=== PATIENT | female | born 1985 | race Caucasian/White ===

== ENCOUNTER 2018-09-17 11:13 | Emergency (ER) | payer OTHER ==
[~2018-09-17] VITALS: Ht 160 cm; Wt 73.8 kg
[~2018-09-17 11:13] MED LIST: AMIT100T PO; ESCI20TA PO; HYDR-3307 PO; MORP15TA PO; VALA1000 PO; ZONI25CA2 PO
[2018-09-17 12:24] LABS: MICROSCOPIC NOT IND
--- NOTE | 2018-09-17 12:29 | NUR ---
PT AMBULOTORY TO ROOM FROM LOBBY.
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
[2018-09-17 12:53] VITALS: BP 111/71
--- NOTE | 2018-09-17 12:59 | NUR ---
DR STOCKTON AT BEDSIDE TO AK[facility]IL PT
--- NOTE | 2018-09-17 13:19 | NUR ---
REPORT RECEIVED FROM TASK FRANK RIVERA, REPORT GIVEN TO FRANK PARRA AT BEDSIDE.
[2018-09-17 13:29] LABS: BASOPHILS # (AUTO) 0.15 x10^3/uL (0-0.1); BASOPHILS % (AUTO) 1 % (0-1); EOSINOPHILS # (AUTO) 0.11 x10^3/uL (0-0.4); EOSINOPHILS % (AUTO) 1 % (1-7); LYMPHOCYTES % (AUTO) 17 % (22-44); MD NO; MEAN CORPUSCULAR HEMOGLOBIN 30.8 pg (27.0-34.8); MEAN CORPUSCULAR HGB CONC 33.3 g/dL (32.4-35.8); MEAN CORPUSCULAR VOLUME 92.3 fL (80-100); MEAN PLATELET VOLUME 7.9 fL (7.4-10.4); MONOCYTES # (AUTO) 0.67 x10^3/uL (0.2-0.8); MONOCYTES % (AUTO) 5 % (2-9); NEUTROPHILS # (AUTO) 10.09 x10^3/uL (1.8-6.8); NEUTROPHILS % (AUTO) 76 % (42-75); PLATELET COUNT 319 x10^3/uL (130-400); RED BLOOD COUNT 3.78 x10^6/uL (3.82-5.3); RED CELL DISTRIBUTION WIDTH 14.9 % (9.6-15.2)
[2018-09-17 13:40] LABS: ALANINE AMINOTRANSFERASE 11 U/L (12-78); ALBUMIN 3.5 g/dL (3.4-5.0); ANION GAP 7 mmol/L (5-15); CALCIUM 8.4 mg/dL (8.5-10.1); CHLORIDE 110 mmol/L (98-107); CREATININE 0.46 mg/dL (0.55-1.02)
[2018-09-17 13:43] LABS: ALKALINE PHOSPHATASE 74 U/L (45-117); BILIRUBIN,TOTAL 0.2 mg/dL (0.2-1.0); TOTAL PROTEIN 6.7 g/dL (6.4-8.2)
== END 2018-09-17 15:08 | disposition home or self-care (01) ==
LOC: ED 13:46
DX: O26.891 Other specified pregnancy related conditions, first trimester (principal); Z3A.13 13 weeks gestation of pregnancy; R10.84 Generalized abdominal pain; O99.332 Smoking (tobacco) complicating pregnancy, second trimester; G44.211 Episodic tension-type headache, intractable; R00.2 Palpitations; Z90.49 Acquired absence of other specified parts of digestive tract
CPT/HCPCS: 36415; 71045; 76801; 80053; 81003; 85025; 93005; 99284

== ENCOUNTER 2019-11-29 04:53 | Emergency (ER) | payer SELFPAY ==
[~2019-11-29] VITALS: Ht 165.1 cm; Wt 75.0 kg
[~2019-11-29 04:53] MED LIST changes: +HYDR-3246 PO; -HYDR-3307 PO; +PRAZ1CAP2 PO; +SUMA100T4 PO; -VALA1000 PO; +VALA10007 PO; +ZONI25CA16 PO; -ZONI25CA2 PO
[2019-11-29 05:23] VITALS: BP 149/110
[2019-11-29 05:52] LABS: AMPHETAMINE SCREEN, URINE Negative (Negative); BARBITURATE SCREEN, URINE Negative (Negative); BENZODIAZEPINE SCREEN, URINE Negative (Negative); CANNABINOID SCREEN, URINE Negative (Negative); COCAINE SCREEN, URINE Negative (Negative); METHADONE SCREEN, URINE Negative (Negative); OPIATE SCREEN, URINE Negative (Negative)
--- NOTE | 2019-11-29 06:54 | NUR ---
REPORT GIVEN TO FRANK MARINELLI.
--- NOTE | 2019-11-29 07:02 | NUR ---
REPORT FROM KENDRA
--- NOTE | 2019-11-29 07:23 | NUR ---
GIVEN WARM BLANKETS, RESTING ON GURNEY. NO OTHER NEEDS AT THIS TIME, CHILD SLEEPING
--- NOTE | 2019-11-29 08:27 | NUR ---
ordered meal tray, gave baby formula. both resting.
--- NOTE | 2019-11-29 09:46 | NUR ---
CPS AT BEDSIDE
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
--- NOTE | 2019-11-29 10:29 | NUR ---
JAMEL TO ASSIST PT FOR DC. PT CRYING AND UPSET. PT REFUSED TO TAKE DC PAPERS
== END 2019-11-29 10:32 | disposition home or self-care (01) ==
LOC: ED 06:16
DX: F41.1 Generalized anxiety disorder (principal); R45.1 Restlessness and agitation; F15.10 Other stimulant abuse, uncomplicated
CPT/HCPCS: 80307; 99283

== ENCOUNTER 2020-11-01 02:45 | Inpatient (IN) | payer MEDICAID ==
[~2020-11-01] VITALS: Ht 162.6 cm; Wt 63.0 kg
[~2020-11-01 02:45] MED LIST changes: -ESCI20TA PO; +ESCI20TA8 PO; -HYDR-3246 PO; +HYDR-3248 PO
[2020-11-01 03:31] LABS: BASOPHILS % (AUTO) 1 % (0-1); EOSINOPHILS % (AUTO) 1 % (1-7); LYMPHOCYTES % (AUTO) 27 % (22-44); MEAN CORPUSCULAR HEMOGLOBIN 30.8 pg (27.0-34.8); MEAN CORPUSCULAR HGB CONC 34.3 g/dL (32.4-35.8); MEAN PLATELET VOLUME 8.7 fL (7.4-10.4); MONOCYTES % (AUTO) 8 % (2-9); NEUTROPHILS % (AUTO) 63 % (42-75); PLATELET COUNT 258 x10^3/uL (130-400); RED BLOOD COUNT 4.52 x10^6/uL (3.82-5.3); RED CELL DISTRIBUTION WIDTH 13.7 % (9.6-15.2)
[2020-11-01 03:32] LABS: ALBUMIN 4.1 g/dL (3.4-5.0); ANION GAP 7 mmol/L (5-15); CALCIUM 8.5 mg/dL (8.5-10.1); CHLORIDE 113 mmol/L (98-107); CREATININE 0.67 mg/dL (0.55-1.02); SALICYLATE LEVEL 2.3 mg/dL (2.8-20.0)
[2020-11-01 03:33] LABS: MD NO
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
--- NOTE | 2020-11-01 04:38 | NUR ---
PT SLEEPING, IN NO ACUTE DISTRESS, CALM.
--- NOTE | 2020-11-01 06:17 | NUR ---
PT REMAINS ASLEEP, REMAINS ON LEGAL HOLD FOR [employer]. NO DISTRESS, SKIN PINK WARM AND DRY, AIRWAY INTACT, GOOD AERATION AND OXYGENATION.
--- NOTE | 2020-11-01 06:47 | NUR ---
REPORT AND CARE TO HUANG MARIE.
--- NOTE | 2020-11-01 07:03 | NUR ---
Pt sleeping, connected to BP and O2 monitors and in view of sitter. Breakfast tray ordered.
--- NOTE | 2020-11-01 08:00 | NUR ---
Late entry: Pt changed to gown. All belongings in 3 labeled bags. Pt provided with breakfast. Pt sleeping in view of sitter now at 0943.
[2020-11-01 10:12] LABS: AMPHETAMINE SCREEN, URINE Positive (Negative); BARBITURATE SCREEN, URINE Negative (Negative); BENZODIAZEPINE SCREEN, URINE Negative (Negative); CANNABINOID SCREEN, URINE Negative (Negative); COCAINE SCREEN, URINE Negative (Negative); METHADONE SCREEN, URINE Negative (Negative); OPIATE SCREEN, URINE Negative (Negative)
[2020-11-01] MEDS ORDERED: IBUPROFEN 200 MG TABLET PO ONE (13:00)
[2020-11-01] MEDS ORDERED: ZIPRASIDONE 20 MG INJ IM ONE (13:30)
--- NOTE | 2020-11-01 13:31 | NUR ---
At 1215, ramon Cuadra F[employer]ER DESIGNER at bedside for eval.
[2020-11-01] MEDS ORDERED: ACETAMINOPHEN 325 MG TABLET PO PRN (16:30)
[2020-11-01] MEDS ORDERED: ONDANSETRON ODT 4 MG PO PRN (16:30)
[2020-11-01] MEDS ORDERED: DOCUSATE 100 MG CAPSULE PO PRN (16:30)
[2020-11-01 17:38] VITALS: BP 117/77
[2020-11-01 19:44] VITALS: BP 130/73
[2020-11-02 06:18] LABS: BASOPHILS % (AUTO) 1 % (0-1); EOSINOPHILS % (AUTO) 2 % (1-7); LYMPHOCYTES % (AUTO) 29 % (22-44); MEAN CORPUSCULAR HEMOGLOBIN 30.7 pg (27.0-34.8); MEAN CORPUSCULAR HGB CONC 33.8 g/dL (32.4-35.8); MEAN PLATELET VOLUME 8.7 fL (7.4-10.4); MONOCYTES % (AUTO) 7 % (2-9); NEUTROPHILS % (AUTO) 61 % (42-75); PLATELET COUNT 231 x10^3/uL (130-400); RED BLOOD COUNT 4.53 x10^6/uL (3.82-5.3); RED CELL DISTRIBUTION WIDTH 13.6 % (9.6-15.2)
[2020-11-02 06:19] LABS: MD NO
[2020-11-02 06:20] LABS: ANION GAP 6 mmol/L (5-15); CALCIUM 8.7 mg/dL (8.5-10.1); CHLORIDE 109 mmol/L (98-107)
[2020-11-02 06:24] LABS: CHOL/HDL RATIO 2.1; CHOLESTEROL, TOTAL 116 mg/dL (140-239); CREATININE 0.67 mg/dL (0.55-1.02); HDL CHOL % 48 % (28-40); HDL CHOLESTEROL (DIRECT) 56 mg/dL (40-60); LDL CHOLESTEROL,CALCULATED 53 mg/dL (54-169); LDL/HDL RATIO 0.9 (0.5-3.0); TRIGLYCERIDES 33 mg/dL (50-200); VLDL CHOLESTEROL 7 mg/dL (0-25)
[2020-11-02 07:11] VITALS: BP 118/76
[2020-11-02] MEDS: RISPERIDONE 1 MG TABLET PO SCH ×2 (10:30→20:42)
[2020-11-02] MEDS: ESCITALOPRAM 10MG TABLET PO SCH ×2 (10:30→16:08)
[2020-11-02 17:13] VITALS: BP 118/76
[2020-11-02] MEDS: IBUPROFEN 600 MG TABLET PO PRN (18:00)
[2020-11-02 18:55] LABS: MICROSCOPIC INDICATED
[2020-11-02 20:25] VITALS: BP 143/81
[2020-11-02] MEDS: PRAZOSIN 1 MG CAPSULE PO SCH (21:00)
[2020-11-03 07:21] VITALS: BP 132/85
[2020-11-03] MEDS: RISPERIDONE 1 MG TABLET PO SCH ×2 (09:00→21:00)
[2020-11-03] MEDS: ESCITALOPRAM 10MG TABLET PO SCH (09:41)
[2020-11-03] MEDS: IBUPROFEN 600 MG TABLET PO PRN (09:41)
[2020-11-03 19:29] VITALS: BP 135/85
[2020-11-03] MEDS: PRAZOSIN 1 MG CAPSULE PO SCH (21:00)
[2020-11-04 07:38] VITALS: BP 129/63
[2020-11-04] MEDS: RISPERIDONE 1 MG TABLET PO SCH ×2 (08:49→21:24)
[2020-11-04] MEDS: IBUPROFEN 600 MG TABLET PO PRN (09:56)
[2020-11-04 19:46] VITALS: BP 120/75
[2020-11-04] MEDS: PRAZOSIN 1 MG CAPSULE PO SCH (21:26)
[2020-11-04] MEDS: NICOTINE GUM 2 MG BC PRN (21:27)
[2020-11-05 06:32] VITALS: BP 128/73
[2020-11-05 07:33] VITALS: BP 117/74
[2020-11-05] MEDS: RISPERIDONE 1 MG TABLET PO SCH ×2 (08:31→19:56)
[2020-11-05] MEDS: ESCITALOPRAM 10MG TABLET PO SCH (08:31)
[2020-11-05] MEDS: NICOTINE GUM 2 MG BC PRN ×4 (08:44→19:51)
[2020-11-05] MEDS: IBUPROFEN 600 MG TABLET PO PRN ×2 (13:08→19:51)
[2020-11-05 18:32] VITALS: BP 128/73
[2020-11-05] MEDS: PRAZOSIN 1 MG CAPSULE PO SCH (19:56)
[2020-11-06 07:08] VITALS: BP 115/73
[2020-11-06] MEDS: ESCITALOPRAM 10MG TABLET PO SCH (07:44)
[2020-11-06] MEDS: RISPERIDONE 1 MG TABLET PO SCH (07:44)
[2020-11-06] MEDS: NICOTINE GUM 2 MG BC PRN ×3 (08:27→12:31)
[2020-11-06] MEDS: IBUPROFEN 600 MG TABLET PO PRN (10:59)
[2020-11-06] MEDS ORDERED: RISP1TAB90 PO (12:49)
== END 2020-11-06 13:30 | disposition home or self-care (01) | DRG 751 ==
LOC: ED 03:15 → 3E 13:40
PROVIDERS: ADMIT Psychiatry & Neurology Psychosomatic Medicine; ATTEND Psychiatry & Neurology Psychosomatic Medicine
DX: F23 Brief psychotic disorder (principal); F11.20 Opioid dependence, uncomplicated; F32.9 Major depressive disorder, single episode, unspecified; F15.229 Other stimulant dependence with intoxication, unspecified; G43.909 Migraine, unspecified, not intractable, without status migrainosus; G47.00 Insomnia, unspecified; F17.210 Nicotine dependence, cigarettes, uncomplicated; Z20.822 Contact with and (suspected) exposure to COVID-19; G89.29 Other chronic pain; F43.10 Post-traumatic stress disorder, unspecified; Z88.8 Allergy status to other drugs, medicaments and biological substances; Z78.1 Physical restraint status; Z79.899 Other long term (current) drug therapy; Z91.410 Personal history of adult physical and sexual abuse
CPT/HCPCS: 36415; 80048; 80061; 80299; 80307; 80320; 80329; 81001; 82040; 84703; 85025; 87426; 87491; 87591; 87806; 93005; G0475; G0480

== ENCOUNTER 2020-11-01 02:46 | Emergency (ER) | payer MEDICAID | END 2020-11-01 13:39 | LOC: ED 02:46 | DX: F22 Delusional disorders (principal); F23 Brief psychotic disorder; Z90.89 Acquired absence of other organs | CPT/HCPCS: 99285 ==